=== PATIENT | male | born 1990 | race American Indian/Alaskan Native ===

== ENCOUNTER 2018-05-27 13:49 | Emergency (ER) | payer MEDICARE ==
[2018-05-27 14:27] VITALS: BP 128/72
[2018-05-27] MEDS ORDERED: BOOSTRIX IM ONE (16:07)
[2018-05-27 16:20] LABS: Basophils % (Auto) 0.5 % (0.0-1.8); Eosinophils % (Auto) 0.3 % (0.0-4.3); Hematocrit 45.4 % (35.5-45.6); Hemoglobin 15.2 gm/dl (11.8-15.2); Lymphocytes # (Auto) 0.5 K/mm3 (1.2-5.4); Lymphocytes % (Auto) 9.6 % (13.4-35.0); Mean Corpuscular HGB Conc 34 % (32-34); Mean Corpuscular Hemoglobin 28 pg (28-32); Mean Corpuscular Volume 84 fl (84-94); Monocytes # (Auto) 0.3 K/mm3 (0.0-0.8); Monocytes % (Auto) 6.2 % (0.0-7.3); Platelet Count 247 K/mm3 (140-440); Red Blood Count 5.41 M/mm3 (3.65-5.03); Red Cell Distribution Width 14.3 % (13.2-15.2)
--- NOTE | 2018-05-27 16:20 | Cat Scan Report ---
FINAL REPORT EXAM: CT HEAD/BRAIN WO CON HISTORY: Ground level fall, possible sz. no LOC TECHNIQUE: CT head without contrast PRIORS: None. FINDINGS: No acute intra-axial or extra-axial hemorrhage is identified. There is no evidence of midline shift or mass effect. The ventricles and sulci are within normal limits. Esposito-white matter differentiation is intact. No acute parenchymal abnormalities seen. Bony calvarium is grossly intact. Visualized portions of the mastoids and paranasal sinuses are unremarkable. There is left lateral scalp soft tissues. IMPRESSION: No acute intracranial findings
[2018-05-27 16:44] LABS: BUN/Creatinine Ratio 11; Blood Urea Nitrogen 10 mg/dL (9-20); Calcium 9.3 mg/dL (8.4-10.2); Hemolysis Index 20
--- NOTE | 2018-05-27 16:54 | XRay Report ---
FINAL REPORT EXAM: XR CHEST 1V AP HISTORY: syncope TECHNIQUE: upright single view chest PRIORS: None. FINDINGS: Cardiac and mediastinal contours are unremarkable. No focal pulmonary infiltrate is identified. No pleural fluid collection seen. Pulmonary vasculature is unremarkable. IMPRESSION: Negative single-view chest
--- NOTE | 2018-05-27 17:19 | Emergency Department Report ---
<OBDULIOStephanieLEOPOLDO Pabon - Last Filed: 05/27/18 18:06> ED Syncope HPI - General Chief Complaint: Head Injury Stated Complaint: SYNCOPE Time Seen by Provider: 05/27/18 15:11 - History of Present Illness Initial Comments: Patient is a 28-year-old male who presents to ED with this parents status post syncope episode while he was at work at [employer]. - Related Data Allergies/Adverse Reactions: Allergies pollen extracts Allergy (Verified 05/27/18 14:31) Itching Home Medications: Ambulatory Orders Naproxen [Naprosyn] 500 mg PO BID #20 tablet 05/27/18 ED Review of Systems ROS: Stated complaint: SYNCOPE Other details as noted in HPI ED Past Medical Hx - Medications Home Medications: Home Medications Medication Instructions Recorded Confirmed Last Taken Type Naproxen [Naprosyn] 500 mg PO BID #20 tablet 05/27/18 Unknown Rx ED Course Vital Signs 05/27/18 14:20 Temperature 98.2 F Pulse Rate 73 Respiratory 16 Rate Blood Pressure 128/72 O2 Sat by Pulse 98 Oximetry - Laceration /Wound Repair Left Anterior Proximal Head Wound Location: head Wound Length (cm): 3 Wound's Depth, Shape: superficial, linear Wound Explored: clean Irrigated w/ Saline (ccs): 200 Betadine Prep?: Yes Anesthesia: 1% Lidocaine Volume Anesthetic (ccs): 2 Number of Sutures: 7 (norah) Layer Closure?: No Sterile Dressing Applied?: Yes Progress: The 3cm laceration wound was prepped and draped in sterile fashion. Anesthesia was achieved with 2mL of 1% lidocaine. The wound was irrigated with 200cc NS and explored. There were no foreign bodies The wound was reapproximated in 1 layer with7 norah in the dermis with interrupted sutures percutaneously. There was excellent reapproximation of the wound edges. The patient tolerated the procedure without complication ED Medical Decision Making - Lab Data Result diagrams: 05/27/18 16:02 05/27/18 16:02 - Radiology Data Radiology results: report reviewed, image reviewed FINAL REPORT EXAM: XR CHEST 1V AP HISTORY: syncope TECHNIQUE: upright single view chest PRIORS: None. FINDINGS: Cardiac and mediastinal contours are unremarkable. No focal pulmonary infiltrate is identified. No pleural fluid collection seen. Pulmonary vasculature is unremarkable. IMPRESSION: Negative single-view chest Transcribed By: JDK Dictated By: SHARAD PATEL MD Electronically Authenticated By: SHARAD PATEL MD Signed Date/Time: 05/27/18 1653 FINAL REPORT EXAM: CT HEAD/BRAIN WO CON HISTORY: Ground level fall, possible sz. no LOC TECHNIQUE: CT head without contrast PRIORS: None. FINDINGS: No acute intra-axial or extra-axial hemorrhage is identified. There is no evidence of midline shift or mass effect. The ventricles and sulci are within normal limits. Esposito-white matter differentiation is intact. No acute parenchymal abnormalities seen. Bony calvarium is grossly intact. Visualized portions of the mastoids and paranasal sinuses are unremarkable. There is left lateral scalp soft tissues. IMPRESSION: No acute intracranial findings Transcribed By: JDK Dictated By: SHARAD PATEL MD Electronically Authenticated By: SHARAD PATEL MD Signed Date/Time: 05/27/18 1619 Critical care attestation.: If time is entered above; I have spent that time in minutes in the direct care of this critically ill patient, excluding procedure time. ED Disposition Clinical Impression: Syncope, Head injury, Scalp laceration Disposition: DC-01 TO HOME OR SELFCARE Condition: Stable Instructions: Laceration (ED), Syncope (ED), Minor Head Injury (ED), Staple Care (ED), New-Onset Seizure in Adults (ED) Prescriptions: Naproxen [Naprosyn] 500 mg PO BID #20 tablet Referrals: PRIMARY CARE, [Primary Care Provider] - 3-5 Days ELI SCHULZ MD [Referring] - 3-5 Days <ALDA HERNANDEZ - Last Filed: 05/27/18 18:26> ED Syncope HPI - General Source: patient - History of Present Illness Initial Comments: 28-year-old male presents to ED following a syncopal episode. Patient was at work, states he began to feel "dehydrated" and then passed out. Patient denies headache, chest pain, shortness of breath prior to syncopal episode. Patient states he did not eat breakfast or lunch today, which is unusual because he normally eats breakfast every morning. Patient states was drinking water throughout the day. Following syncopal episode bystanders state they noticed possible seizure-like activity. Patient sustained laceration to left scalp. Patient reports mild headache at this time. No nausea or vomiting Timing/Prior Episodes: single episode today Precipitating Factors: Positive: lightheadedness Context: standing Loss of Consciousness: unsure Current Symptoms: back to normal, headache. denies: chest pain, dizziness, loss of bladder control, loss of bowel control ED Review of Systems Comment: All other systems reviewed and negative Constitutional: denies: chills, fever Respiratory: denies: shortness of breath Cardiovascular: denies: chest pain, palpitations Gastrointestinal: denies: abdominal pain, nausea, vomiting Neurological: headache ED Past Medical Hx - Past Medical History Previous Medical History?: Yes Additional medical history: Hypothyroidism - Surgical History Past Surgical History?: Yes Hx Breast Surgery: Yes (Augmentation - Gynamastia) Additional Surgical History: Left Knee - arthoplasty - Social History Smoking Status: Never Smoker Substance Use Type: None ED Physical Exam - General Limitations: Other General appearance: alert, in no apparent distress - Head Head exam: Present: normocephalic, other (3 cm laceration to left parietal scalp ) - Eye Eye exam: Present: normal appearance, PERRL, EOMI - ENT ENT exam: Present: mucous membranes moist - Neck Neck exam: Present: normal inspection - Respiratory Respiratory exam: Present: normal lung sounds bilaterally. Absent: respiratory distress - Cardiovascular Cardiovascular Exam: Present: regular rate, normal rhythm - GI/Abdominal GI/Abdominal exam: Present: soft. Absent: tenderness - Extremities Exam Extremities exam: Present: normal inspection - Neurological Exam Neurological exam: Present: alert, oriented X3, CN II-XII intact, motor sensory deficit - Psychiatric Psychiatric exam: Present: normal affect, normal mood - Skin Skin exam: Present: warm, dry, intact, normal color ED Medical Decision Making - Lab Data Result diagrams: 05/27/18 16:02 05/27/18 16:02 - EKG Data -: EKG Interpreted by Me EKG shows normal: sinus rhythm, axis, intervals, QRS complexes, ST-T waves Rate: normal - EKG Data Interpretation: no acute changes - Medical Decision Making 28-year-old male status post syncopal episode while at work. Patient reports tonight he anything today prior to episode. Patient did have a meal tray here in ED. States is feeling much better. CT head, chest x-ray normal. Labs unremarkable. Patient mildly orthostatic at this time. Scalp laceration was repaired. Advised to drink plenty fluids at home. Witnesses report a possible seizure-like activity following syncopal episode. Will provide neurology follow -up for further evaluation. Return precautions given. - Differential Diagnosis arrythmia, dehydration, seizure, intracranial bleed ED Disposition Is pt being admited?: No Time of Disposition: 18:14
[2018-05-27] MEDS ORDERED: MOTRIN PO ONE (18:14)
== END 2018-05-27 18:31 | disposition home or self-care (01) ==
LOC: ED 13:49
DX: S01.01XA Laceration without foreign body of scalp, initial encounter (principal); R55 Syncope and collapse; E03.9 Hypothyroidism, unspecified; W18.30XA Fall on same level, unspecified, initial encounter; Y93.89 Activity, other specified; Y92.89 Other specified places as the place of occurrence of the external cause; Y99.8 Other external cause status
CPT/HCPCS: 36415; 70450; 71045; 80048; 84484; 85025; 90471; 90715; 93005; 93010

== ENCOUNTER 2018-05-31 11:41 | Emergency (ER) | payer SELFPAY | END 2018-05-31 13:00 | LOC: ED 11:41 | DX: Z48.02 Encounter for removal of sutures (principal); Z53.21 Procedure and treatment not carried out due to patient leaving prior to being seen by health care provider ==